=== PATIENT | female | born 1955 | race Caucasian/White ===

== ENCOUNTER 2016-04-04 11:53 | Emergency (ER) | payer BC ==
[~2016-04-04] VITALS: Ht 162.6 cm; Wt 70.5 kg
[2016-04-04 12:32] LABS: BASOPHILS % (AUTO) 1 % (0-2); EOSINOPHILS % (AUTO) 1 % (0-4); LYMPHOCYTES # (AUTO) 1.1 X10^3; MEAN CORPUSCULAR VOLUME 93 FL (80-100); MEAN PLATELET VOLUME 9.1 FL (6.0-9.5); MONOCYTES # (AUTO) 0.7 X10^3; MONOCYTES % (AUTO) 12 % (3-11); NEUTROPHILS # (AUTO) 4.6 X10^3; NEUTROPHILS % (AUTO) 71 % (51-67); PLATELET COUNT 337 10^3uL (150-450); WHITE BLOOD COUNT 6.46 10^3uL (4.0-11.0)
[2016-04-04 12:38] LABS: MEAN CORPUSCULAR HEMOGLOBIN 33.3 PG (26.0-34.0); MEAN CORPUSCULAR HGB CONC 35.7 g/dL (31.0-37.0)
[2016-04-04] MEDS ORDERED: GI COCKTAIL 55 ML UDC PO ONE (12:40)
[2016-04-04 12:44] LABS: ALBUMIN 4.4 g/dL (3.4-5.0); ALKALINE PHOSPHATASE 93 U/L (38-126); ANION GAP 13.6 MEQ/L (3-15); BUN/CREATININE RATIO 14 (10-20); CREATINE KINASE 56 U/L (30-135); LIPASE* 103 U/L (23-300); TOTAL PROTEIN 7.4 g/dL (6.4-8.5)
[2016-04-04] MEDS ORDERED: MAG HYDROX/AL HYDROX/SIMETH 400-400-40/5 ML (MAG-AL PLUS XS) 30 ML UDC ONE (12:45)
[2016-04-04] MEDS ORDERED: BELLADONNA/PHENOBARBITAL ELIXIR (DONNATAL) 10 ML UDC ONE (12:45)
[2016-04-04] MEDS ORDERED: LIDOCAINE 2% VISCOUS 20ML UDC PO ONE (12:45)
[2016-04-04] MEDS: LORazepam 2 MG/ML (ATIVAN) 1 ML VIAL IV ONE ×2 (14:40→14:56)
[2016-04-04 15:33] LABS: BILIRUBIN,URINE Negative (Negative); CLARITY,URINE Clear; COLOR,URINE Yellow; GLUCOSE, URINE (UA) Negative (Negative); LEUKOCYTE ESTERASE ,URINE Negative (Negative); UROBILINOGEN,URINE 0.2 mg/dL (0.2-1.0)
[2016-04-04] MEDS ORDERED: ONDANSETRON 2 MG/ML (Z0FRAN) 2 ML VIAL IV ONE (15:55)
[2016-04-04] MEDS ORDERED: LORazepam 2 MG/ML (ATIVAN) 1 ML VIAL IV ONE (15:55)
[2016-04-04 16:23] VITALS: BP 149/84
== END 2016-04-04 16:24 | disposition home or self-care (01) ==
LOC: EDUNIT# 11:53 → ED 11:55
DX: R10.13 Epigastric pain (principal); F41.9 Anxiety disorder, unspecified
CPT/HCPCS: 36415; 71010; 71260; 74177; 80053; 81003; 82550; 82553; 83690; 83880; 84443; 84484; 85025; 85610; 86140; 93005; 96374; 96375; 99284; J2060; J2405; Q9967; 93010

== ENCOUNTER → 2016-04-06 | Outpatient (CLI) | payer BC | LOC: RAD 13:51 | PROVIDERS: ATTEND Family Medicine | DX: R10.13 Epigastric pain (principal) | CPT/HCPCS: 76700 ==

== ENCOUNTER 2016-04-09 06:19 | Day surgery (SDC) | payer BC ==
[~2016-04-09] VITALS: Ht 162.6 cm; Wt 70.0 kg
[~2016-04-09 06:19] MED LIST: LACTATED RINGERS 1,000 ML IV SCH; SODIUM CHLORIDE FLUSH 3 ML SYR IV PRN
[2016-04-09 06:37] VITALS: BP 132/85
[2016-04-09] MEDS ORDERED: LIDOCAINE 4% TOPICAL 4.5 ML SYR ONE (06:45)
[2016-04-09] MEDS ORDERED: SIMETHICONE 40 MG/0.6 ML (MYLICON DROPS) ORAL SYRINGE ONE (06:45)
[2016-04-09] MEDS ORDERED: ALFENTANIL 500 MCG/ML (ALFENTA) 5 ML AMP IV ONE (07:12)
[2016-04-09] MEDS ORDERED: PROPOFOL 20 ML IV ONE (07:12)
[2016-04-09] MEDS ORDERED: MIDAZOLAM 2 MG/2 ML (VERSED) VIAL ONE (07:12)
[2016-04-09] MEDS ORDERED: ONDANSETRON 2 MG/ML (Z0FRAN) 2 ML VIAL ONE (07:34)
[2016-04-09 07:53] VITALS: BP 151/87
[2016-04-09 08:11] VITALS: BP 142/91
== END 2016-04-09 08:19 | disposition home or self-care (01) ==
LOC: ASC 06:19
PROVIDERS: ATTEND Surgery
DX: K25.9 Gastric ulcer, unspecified as acute or chronic, without hemorrhage or perforation (principal); Z79.1 Long term (current) use of non-steroidal anti-inflammatories (NSAID); K29.50 Unspecified chronic gastritis without bleeding
CPT/HCPCS: 43239; 87077; J2250; J2405; J7120

== ENCOUNTER → 2016-04-27 | Outpatient (CLI) | payer BC | LOC: RAD 11:56 | PROVIDERS: ATTEND Family Medicine | DX: R10.13 Epigastric pain (principal); K82.4 Cholesterolosis of gallbladder | CPT/HCPCS: 76700 ==

== ENCOUNTER → 2016-04-29 | Outpatient (CLI) | payer BC | LOC: RAD 08:20 | PROVIDERS: ATTEND Family Medicine | DX: R10.13 Epigastric pain (principal) | CPT/HCPCS: 78226; A9537; J2805 ==

== ENCOUNTER → 2016-04-30 | Outpatient (CLI) | payer BC | LOC: RAD 08:20 | PROVIDERS: ATTEND Surgery | DX: R10.13 Epigastric pain (principal) | CPT/HCPCS: 78264; A9541 ==